=== PATIENT | female | born 1985 | race Caucasian/White ===

== ENCOUNTER 2017-07-08 13:47 | Emergency (ER) | payer OTHER ==
--- NOTE | 2017-07-08 14:58 | ED Physician Documentation ---
PD HPI SKIN - Stated complaint Stated Complaint: INFECTED TOE - Chief complaint Chief Complaint: Wound - History obtained from History obtained from: Patient - History of Present Illness Timing - onset: How many days ago (2) Timing - duration: Days (2) Timing - details: Abrupt onset (had pedicure 2 days ago with some removal of ingrown nail at corners, and has noted abrupt onset of redness and swelling since yesterday.) Location: Other (great toe) Quality / character: Discolored (red), Swelling. No: Itchy Review of Systems Constitutional: denies: Fever, Chills GI: denies: Nausea, Vomiting PD PAST MEDICAL HISTORY - Past Medical History Past Medical History: No - Past Surgical History Past Surgical History: Yes /PERSONAL CARE AID: section HEENT: Tonsil/Adenoidectomy - Present Medications Home Medications: Ambulatory Orders Medication Instructions Recorded Confirmed Doxycycline Monohydrate 100 mg PO BID #14 tablet 07/08/17 Mupirocin 1 applic TP TID #15 oint...g. 07/08/17 - Allergies Allergies/Adverse Reactions: Allergies Allergy/AdvReac Type Severity Reaction Status Date / Time No Known Drug Allergies Allergy Verified 07/08/17 13:56 - Social History Does the pt smoke?: No Smoking Status: Never smoker Does the pt drink ETOH?: No Does the pt have substance abuse?: No - Immunizations Immunizations are current?: Yes PD ED PE NORMAL - Vitals Vital signs reviewed: Yes - General General: Alert and oriented X 3, No acute distress, Well developed/nourished - Derm Derm: Normal color, Warm and dry - Extremities Extremities: Other (great toe left with redness and swelling around medial corner mostly. Mildly red right great toe corner. No abscess, no ingrown nail segments. ) - Neuro Neuro: No motor deficit, No sensory deficit Results - Vitals Vitals: Vital Signs - 24 hr 07/08/17 07/08/17 13:52 16:03 Temperature 36.8 C Heart Rate 95 71 Respiratory 18 12 Rate Blood Pressure 143/92 H 130/104 H O2 Saturation 99 95 Oxygen O2 Source Room air PD MEDICAL DECISION MAKING - ED course Complexity details: considered differential (no ingrown nails - presume initiation of the infection was with pedicure. Will treat for cellulitis/ paronychia. ), d/w patient Departure - Departure Disposition: 01 Home, Self Care Clinical Impression: Paronychia Condition: Stable Record reviewed to determine appropriate education?: Yes Instructions: ED Paronychia Ch Follow-Up: Briseyda Oreilly ARNP [Primary Care Provider] - Prescriptions: Doxycycline Monohydrate 100 mg PO BID #14 tablet Mupirocin 1 applic TP TID #15 oint...g. Comments: Soak the toes and warm water 2-3 times a day and then clean it and apply antibiotic ointment mupirocin. Also doxycycline oral antibiotic for the skin infection. Recheck if not improving over the next few days. Tylenol or ibuprofen if needed for pains. Discharge Date/Time: 07/08/17 16:20
[2017-07-08] MEDS ORDERED: MUPIROCIN 2% OINT 1 GM TOP STA (15:19)
[2017-07-08] MEDS ORDERED: DOXYCYCLINE 100 MG TABLET PO STA (15:19)
[2017-07-08 16:04] VITALS: BP 130/104
== END 2017-07-08 16:20 | disposition home or self-care (01) ==
LOC: ED 13:47
DX: L03.039 Cellulitis of unspecified toe (principal)
CPT/HCPCS: 99283; A9270

== ENCOUNTER 2017-08-13 11:29 | Outpatient (CLI) | payer OTHER ==
[2017-08-13 19:07] LABS: BASOPHILS % (AUTO) 0.1 %; EOSINOPHILS # (AUTO) 0.1 10^3/uL (0.0-0.7); EOSINOPHILS % (AUTO) 1.3 %; HGB - HEMOGLOBIN 14.5 g/dL (12.0-16.0); LYMPHOCYTES # (AUTO) 3.1 10^3/uL (1.5-3.5); LYMPHOCYTES % (AUTO) 35.6 %; MEAN CORPUSCULAR HEMOGLOBIN 29.4 pg (27.0-31.0); MEAN CORPUSCULAR HGB CONC 33.5 g/dL (32.0-36.0); MEAN CORPUSCULAR VOLUME 87.7 fL (81.0-99.0); MEAN PLATELET VOLUME 7.6 fL (7.9-10.8); MONOCYTES # (AUTO) 0.4 10^3/uL (0.0-1.0); MONOCYTES % (AUTO) 4.9 %; NEUTROPHILS % (AUTO) 58.1 %; PLT - PLATELET COUNT 292 10^3/uL (130-450); RED BLOOD COUNT 4.94 10^6/uL (4.20-5.40); RED CELL DISTRIBUTION WIDTH 12.8 % (12.0-15.0); WHITE BLOOD COUNT 8.7 x10^3/uL (4.8-10.8)
[2017-08-13 19:18] LABS: ALBUMIN 4.7 g/dL (3.2-5.5); ALBUMIN/GLOBULIN RATIO 1.6 (1.0-2.2); ALKALINE PHOSPHATASE 48 IU/L (42-121); ALT ALANINE AMINOTRANSFERASE 18 IU/L (10-60); AST ASPARTATE AMINOTRANSFERASE 18 IU/L (10-42); BILIRUBIN,TOTAL 0.6 mg/dL (0.2-1.0); BUN - BLOOD UREA NITROGEN 13 mg/dL (6-20); CALCIUM 9.1 mg/dL (8.5-10.3); CARBON DIOXIDE - CO2 24 mmol/L (21-32); CHLORIDE 105 mmol/L (101-111); CHOL/HDL RATIO 3.8 (<4.4); CHOLESTEROL 240 mg/dL; CREATININE 0.5 mg/dL (0.4-1.0); GFR - MDRD 142 (>89); GLUCOSE 95 mg/dL (70-100); HDL CHOLESTEROL 63 mg/dL; LDL CHOLESTEROL,CALCULATED 152 mg/dL; LDL/HDL RATIO 2.4 (<4.4); SODIUM 136 mmol/L (135-145); TOTAL PROTEIN 7.7 g/dL (6.7-8.2); VLDL CHOLESTEROL 25 mg/dL
== END 2017-08-13 11:30 | disposition home or self-care (01) ==
LOC: LAB.N 11:29
PROVIDERS: ATTEND Family Medicine
DX: R19.4 Change in bowel habit (principal); E66.9 Obesity, unspecified
CPT/HCPCS: 36415; 80050; 80061; 83721

== ENCOUNTER 2019-03-22 08:00 | Outpatient (CLI) | payer OTHER | END 2019-03-22 23:59 | disposition home or self-care (01) | LOC: LAB.R 08:00 | PROVIDERS: ATTEND Physician Assistant Medical | DX: J02.0 Streptococcal pharyngitis (principal) | CPT/HCPCS: 87070 ==

== ENCOUNTER 2020-11-02 11:56 | Outpatient (CLI) | payer OTHER ==
--- NOTE | 2020-11-02 16:13 | XRAY Report ---
PROCEDURE: Lumbar Spine 2 View INDICATIONS: LOW BACK PAIN TECHNIQUE: 3 views of the lumbar spine were acquired. COMPARISON: None. FINDINGS: Bones: 5 [id number] vertebrae are present. There is normal bony alignment. Minimal disc space narrowing is noted at L5-S1. Minimal foraminal narrowing is observed at L4-5 and L5-S1. No vertebral body compression fractures. No suspicious bony lesions. Soft tissues: Overlying bowel gas pattern is normal. No suspicious soft tissue calcifications. IMPRESSION: Minimal degenerative changes most notable at L5-S1. Reviewed by: Jane Johnson MD on 11/02/2020 4:11 PM PDT Approved by: Jane Johnson MD on 11/02/2020 4:11 PM PDT Station ID: [id number]
== END 2020-11-02 11:57 | disposition home or self-care (01) ==
LOC: DI.N 11:56
PROVIDERS: ATTEND Physician Assistant Medical
DX: M47.816 Spondylosis without myelopathy or radiculopathy, lumbar region (principal); M47.817 Spondylosis without myelopathy or radiculopathy, lumbosacral region; M51.37 Other intervertebral disc degeneration, lumbosacral region; M48.07 Spinal stenosis, lumbosacral region; M48.061 Spinal stenosis, lumbar region without neurogenic claudication

== ENCOUNTER 2021-05-08 14:15 | Outpatient (CLI) | payer OTHER ==
--- NOTE | 2021-05-08 15:08 | MRI Report ---
PROCEDURE: Lumbar Spine W/O INDICATIONS: LOW BACK PAIN TECHNIQUE: Noncontrast sagittal T1 spin echo and T2 fast echo, sagittal STIR, axial T1 and T2 fast spin echo thr ough the lumbar spine. In cases with scoliosis, additional coronal T2 fast spin echo may be performe d. COMPARISON: None. FINDINGS: Normal lumbar vertebral body height, alignment, and signal intensity. No suspicious focal marrow sign al abnormality or bone marrow edema. Normal position and appearance of the conus. Regional prevertebr al and paraspinous soft tissues are within normal limits. T12-L1: No spinal canal or neural foraminal stenosis. L1-L2: No spinal canal or foraminal stenosis. L2-L3: No spinal canal or neural foraminal stenosis. L3-L4: No spinal canal or neural foraminal stenosis. L4-L5: No spinal canal or neural foraminal stenosis. Mild facet degenerative changes. L5-S1: No spinal canal or neural foraminal stenosis. Mild facet degenerative changes. IMPRESSION: Mild degenerative changes of the facets at L4-L5 and L5-S1. No significant degenerative changes otherwise. Reviewed by: Kashmir Giang MD on 05/08/2021 3:06 PM PST Approved by: Kashmir Giang MD on 05/08/2021 3:06 PM PST Station ID: [id number]
== END 2021-05-08 14:16 | disposition home or self-care (01) ==
LOC: DI 14:15
PROVIDERS: ATTEND Physician Assistant Medical
DX: M54.50 Low back pain, unspecified (principal); M47.817 Spondylosis without myelopathy or radiculopathy, lumbosacral region

== ENCOUNTER 2022-03-19 08:00 | Outpatient (CLI) | payer OTHER ==
[2022-03-19 23:09] LABS: CHLAMYDIA TRACHOMATIS DNA NEGATIVE (NEGATIVE); NEISSERIA GONORRHOEAE DNA NEGATIVE (NEGATIVE); TRICHOMONAS VAGINALIS DNA NEGATIVE (NEGATIVE)
== END 2022-03-19 23:59 | disposition home or self-care (01) ==
LOC: LAB 08:00
PROVIDERS: ATTEND Physician Assistant Medical
DX: N39.0 Urinary tract infection, site not specified (principal)
CPT/HCPCS: 87086; 87181; 87491; 87591; 87661

== ENCOUNTER 2022-11-11 10:34 | Outpatient (CLI) | payer OTHER ==
[2022-11-11 17:57] LABS: BASOPHILS % (AUTO) 0.2 %; EOSINOPHILS # (AUTO) 0.1 10^3/uL (0.0-0.7); EOSINOPHILS % (AUTO) 0.9 %; HCT - HEMATOCRIT 44.1 % (37.0-47.0); HGB - HEMOGLOBIN 14.5 g/dL (12.0-16.0); LYMPHOCYTES # (AUTO) 2.4 10^3/uL (1.5-3.5); LYMPHOCYTES % (AUTO) 36.3 %; MEAN CORPUSCULAR HGB CONC 32.9 g/dL (32.0-36.0); MEAN CORPUSCULAR VOLUME 91.3 fL (81.0-99.0); MEAN PLATELET VOLUME 9.5 fL (7.9-10.8); MONOCYTES # (AUTO) 0.3 10^3/uL (0.0-1.0); MONOCYTES % (AUTO) 4.9 %; NEUTROPHILS # (AUTO) 3.7 10^3/uL (1.5-6.6); NEUTROPHILS % (AUTO) 57.5 %; PLT - PLATELET COUNT 295 10^3/uL (130-450); RED BLOOD COUNT 4.83 10^6/uL (4.20-5.40); RED CELL DISTRIBUTION WIDTH 11.9 % (12.0-15.0); WHITE BLOOD COUNT 6.5 x10^3/uL (4.8-10.8)
[2022-11-11 18:01] LABS: ALBUMIN 4.5 g/dL (3.2-5.5); ALBUMIN/GLOBULIN RATIO 1.6 (1.0-2.2); ALKALINE PHOSPHATASE 44 IU/L (42-121); ALT ALANINE AMINOTRANSFERASE 11 IU/L (10-60); AST ASPARTATE AMINOTRANSFERASE 11 IU/L (10-42); BILIRUBIN,TOTAL 0.7 mg/dL (0.2-1.0); BUN - BLOOD UREA NITROGEN 15 mg/dL (6-20); CALCIUM 9.5 mg/dL (8.5-10.3); CARBON DIOXIDE - CO2 27 mmol/L (21-32); CHLORIDE 103 mmol/L (101-111); CHOL/HDL RATIO 2.9 (<4.4); CHOLESTEROL 195 mg/dL; CREATININE 0.6 mg/dL (0.6-1.3); CRP - C-REACTIVE PROTEIN 0.5 mg/dL (<0.5); GFR - MDRD 112 (>89); GLUCOSE 91 mg/dL (74-104); HDL CHOLESTEROL 67 mg/dL; LDL CHOLESTEROL,CALCULATED 110 mg/dL; LDL/HDL RATIO 1.6 (<4.4); POTASSIUM 3.5 mmol/L (3.5-4.5); SODIUM 137 mmol/L (135-145); TOTAL PROTEIN 7.3 g/dL (6.4-8.9); TRIGLYCERIDES 88 mg/dL (48-352); VLDL CHOLESTEROL 18 mg/dL
[2022-11-11 18:14] LABS: THYROID STIMULATING HORMONE 0.84 uIU/mL (0.34-5.60)
[2022-11-11 18:24] LABS: RHEUMATOID FACTOR NEGATIVE (Negative)
[2022-11-12 18:12] LABS: ANTI-DNA (DS) AB QN 1 IU/mL (0-9)
[2022-11-13 17:08] LABS: ANTINUCLEAR ANTIBODIES IFA Negative (.)
== END 2022-11-11 10:35 | disposition home or self-care (01) ==
LOC: LAB.N 10:34
PROVIDERS: ATTEND Physician Assistant Medical
DX: Z00.00 Encounter for general adult medical examination without abnormal findings (principal); M25.50 Pain in unspecified joint
CPT/HCPCS: 36415; 80050; 80061; 83721; 85651; 86038; 86140; 86225; 86430

== ENCOUNTER 2023-03-11 09:15 | Outpatient (CLI) | payer OTHER ==
--- NOTE | 2023-03-11 11:29 | XRAY Report ---
PROCEDURE: Hips 2V BILAT INDICATIONS: LEFT HIP PAIN TECHNIQUE: 3 views of the hip were acquired. COMPARISON: None. FINDINGS: Bones: No fractures or dislocations. Bilateral hip joint osteoarthritic changes are seen. No eviden ce of avascular necrosis of femoral head. No suspicious bony lesions. Soft tissues: No suspicious soft tissue calcifications or masses. Intrauterine device is noted. IMPRESSION: No acute pelvic or hip fracture. No hip dislocation. Left worse than right bilateral hip joint osteoa rthritis. No evidence of avascular necrosis. Reviewed by: Iban Mendiola MD on 03/11/2023 11:28 AM PST Approved by: Iban Mendiola MD on 03/11/2023 11:28 AM PST Station ID: [id number]
== END 2023-03-11 09:30 | disposition home or self-care (01) ==
LOC: DI.N 09:15
PROVIDERS: ATTEND Family Medicine
DX: M16.0 Bilateral primary osteoarthritis of hip (principal)